=== PATIENT | female | born 1980 | race Caucasian/White ===

== ENCOUNTER 2020-12-18 15:35 | Emergency (ER) | payer BC ==
[~2020-12-18] VITALS: Ht 162.6 cm; Wt 88.5 kg
[2020-12-18] MEDS ORDERED: NORCO5 PO (16:58)
[2020-12-18 17:35] VITALS: BP 145/87
== END 2020-12-18 17:35 | disposition home or self-care (01) ==
LOC: ER 15:35
DX: S52.532A Colles' fracture of left radius, initial encounter for closed fracture (principal); W18.39XA Other fall on same level, initial encounter; Y93.89 Activity, other specified; Y92.89 Other specified places as the place of occurrence of the external cause; Y99.8 Other external cause status